=== PATIENT | female | born 1945 | race Caucasian/White ===

== ENCOUNTER 2022-08-20 15:59 | Emergency (ER) | payer OTHER, MEDICARE ==
[2022-08-20 16:10] VITALS: BP 138/80
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
== END 2022-08-20 16:59 | disposition home or self-care (01) ==
LOC: EDBD → ED 15:59
DX: S69.92XA Unspecified injury of left wrist, hand and finger(s), initial encounter (principal); S00.81XA Abrasion of other part of head, initial encounter; V49.9XXA Car occupant (driver) (passenger) injured in unspecified traffic accident, initial encounter; G47.00 Insomnia, unspecified
CPT/HCPCS: 99283